=== PATIENT | male | born 1955 | race Two or more races ===

== ENCOUNTER 2017-06-30 19:55 | Emergency (ER) | payer SELFPAY ==
[~2017-06-30] VITALS: Ht 152.4 cm; Wt 99.8 kg
[2017-06-30] MEDS ORDERED: IBUPROFEN600 MG ORAL (20:53)
[2017-06-30 21:26] VITALS: BP 155/98
--- NOTE | 2017-06-30 21:31 | Emergency Room Report ---
History of Present Illness General Chief Complaint: Lower Extremity Injury Source: Patient Present Illness HPI The patient is a [id number] male presenting for right ankle pain. He states that he was getting out of bed yesterday and felt the right ankle folded underneath him. Pain is a 10 out of 10 dull ache and does not radiate. Worse with movement and touch. He denies previous injury to that ankle. He denies any numbness or tingling. He denies any other injury or symptoms Allergies: Coded Allergies: No Known Allergies (Unverified , 06/30/17) Patient History Past Medical History: see triage record Pertinent Family History: none Reviewed Nursing Documentation: PMH: Agreed, PSxH: Agreed Nursing Documentation-PMH Past Medical History: No Stated History Review of Systems All Other Systems: negative except mentioned in HPI Physical Exam Vital Signs Date Time Temp Pulse Resp B/P (MAP) Pulse Ox O2 Delivery O2 Flow Rate FiO2 06/30/17 19:59 98.2 77 18 155/98 100 Procedures Splinting Splinting : Consent: Verbal Location: R ankle Pre-Made Type: aircast Pre-Proc Neuro Vasc Exam: normal Post-Proc Neuro Vasc Exam: normal Patient Tolerated: Well Complications: None Medical Decision Making PA Attestation Dr. Monterroso is my supervising physician. Patient management was discussed with my supervising physician Diagnostic Impression: Primary Impression: Ankle sprain Qualified Codes: S93.401A - Sprain of unspecified ligament of right ankle, initial encounter ER Course The patient is a [id number] male presenting for right ankle pain Physical exam: Vitals within normal limits. No apparent distress R ankle: There is tenderness to palpation and edema over the R lateral malleolus. Limited active range of motion. Sensation intact to light touch. X-ray of the R ankle is unremarkable R air cast placed. Pt has crutches he brought from home. ER precautions are given. Patient given prescription for Motrin and will follow up with primary care physician. Other X-Ray Diagnostic Results Other X-Ray Diagnostic Results : X-Ray ordered: R ankle # of Views/Limited Vs Complete: 3 View Indication: Pain EP Interpretation: Yes Interpretation: no dislocation, no soft tissue swelling, no fractures Impression: No acute disease Electronically Signed by: TITA Chun Scribe Text I have reviewed the xray with my supervising physician and interpretation is that there are no fractures, dislocations or soft tissue swelling. Last Vital Signs Date Time Temp Pulse Resp B/P (MAP) Pulse Ox O2 Delivery O2 Flow Rate FiO2 06/30/17 21:12 98.2 06/30/17 19:59 77 18 155/98 100 Status: improved Disposition: HOME, SELF-CARE Condition: Improved Scripts Ibuprofen* (MOTRIN*) 600 Mg Tablet 600 MG ORAL Q8H Y for For Pain, #30 TAB 0 Refills Prov: KIARA BARAJAS 06/30/17 Referrals: NON PHYSICIAN (PCP) Patient Instructions: Ankle Sprain Additional Instructions: I discussed my findings with the patient. All questions and concerns have been answered. Treatment and medication compliance have been addressed. I advised the patient that they need to follow up with PMD in 3-5 days. Return to ED if pain remains or worsens, numbness or tingling occurs, new rash is noticed, fever is noticed, or if needed for any reason. Patient verbalized understanding of discharge instructions. KIARA BARAJAS Jun 30, 2017 21:31
--- NOTE | 2017-07-01 10:42 | Diagnostic Imaging Report ---
Indication: PAIN Technique: 3 views of the right ankle Comparison: none Findings: No acute fractures. No dislocations. Joint spaces are preserved. There are small plantar and calcaneal spurs Impression: Negative
== END 2017-06-30 21:27 | disposition home or self-care (01) ==
LOC: EMR 20:10
DX: S93.401A Sprain of unspecified ligament of right ankle, initial encounter (principal); W06.XXXA Fall from bed, initial encounter; Y92.89 Other specified places as the place of occurrence of the external cause
CPT/HCPCS: 99283